=== PATIENT | female | born 1960 ===

== ENCOUNTER 2017-04-28 10:30 | Emergency (ER) | payer BC ==
[2017-04-28] MEDS ORDERED: Dexamethasone IV* 4 MG/ML 1 ML (4 MG) IM ONE (12:00)
[2017-04-28] MEDS ORDERED: Ketorolac INJ* 60 MG/2 ML VIAL IM ONE (12:01)
[2017-04-28] MEDS ORDERED: hydrOXYzine HCL TAB* 50 MG PO ONE (12:01)
[2017-04-28 13:13] VITALS: BP 127/62
--- NOTE | 2017-04-29 22:01 | ED ---
Allergic Reaction/Systemic - HPI Summary HPI Summary: Patient presents after wasp sting on the right knuckle. Her hand has been swollen since, but she did not take her epi pen and denies SOB. She is otherwise healthy. She notes to numbness, tingling and swelling with slight redness in the right hand extending to the right wrist without radiation of pain or numbness/tingling to the arm. Ice packs with relief. Swelling and pain is constant. She has not tried to take any medications. - History of Current Complaint Chief Complaint: EDAllergicReaction Time Seen by Provider: 04/28/17 11:39 Hx Obtained From: Patient Onset/Duration: Sudden Onset Timing: Constant Severity Initially: Moderate Severity Currently: Moderate Pain Intensity: 5 Pain Scale Used: 0-10 Numeric Location: Discrete @ - right hand Aggravating Factor(s): Heat Alleviating Factor(s): Cold Associated Signs And Symptoms: Positive: Negative - Related Hx Possible Reaction To: Insect - Allergies/Home Medications Allergies/Adverse Reactions: Allergies Allergy/AdvReac Type Severity Reaction Status Date / Time Sulfa Drugs Allergy Intermediate Hives Verified 01/23/16 11:04 Bee Venom Allergy Anaphylatic Verified 04/28/17 11:10 Shock PMH/Surg Hx/FS Hx/Imm Hx Previously Healthy: Yes - Cancer History Hx Chemotherapy: No Hx Radiation Therapy: No - Immunization History Hx Pertussis Vaccination: No Immunizations Up to Date: Unable to Obtain/Confirm Infectious Disease History: No Infectious Disease History: Denies: Traveled Outside the [place] in Last 30 Days - Social History Occupation: Employed Full-time Lives: With Family Alcohol Use: Rare Hx Substance Use: No Substance Use Type: Reports: None Hx Tobacco Use: No Smoking Status (MU): Unknown if Ever Smoked Do You Chew or Dip Tobacco: No Have You Chewed or Dipped Tobacco in the LAST YEAR: No Review of Systems Constitutional: Negative Eyes: Negative Cardiovascular: Negative Respiratory: Negative Positive: no symptoms reported, see HPI Musculoskeletal: Negative Positive: Rash Neurological: Negative Psychological: Normal All Other Systems Reviewed And Are Negative: Yes Physical Exam Triage Information Reviewed: Yes Vital Signs On Initial Exam: Initial Vitals Temp Pulse Resp BP Pulse Ox 96.0 F 68 20 138/78 98 04/28/17 10:35 04/28/17 10:35 04/28/17 10:35 04/28/17 10:35 04/28/17 10:35 Vital Signs Reviewed: Yes Appearance: Positive: Well-Appearing, Well-Nourished Skin: Positive: Warm, Skin Color Reflects Adequate Perfusion, Other - hand swelling with erytema, pruritis and pain Head/Face: Positive: Normal Head/Face Inspection Eyes: Positive: Normal, JULIO CÉSAR Respiratory/Lung Sounds: Positive: Clear to Auscultation, Breath Sounds Present Cardiovascular: Positive: Normal, RRR, Pulses are Symmetrical in both Upper and Lower Extremities Musculoskeletal: Positive: Normal, Strength/ROM Intact Neurological: Positive: Normal, Sensory/Motor Intact, Alert, Oriented to Person Place, Time, Speech Normal Psychiatric: Positive: Normal Diagnostics - Vital Signs Vital Signs Temp Pulse Resp BP Pulse Ox 04/28/17 13:12 73 18 127/62 04/28/17 11:25 18 04/28/17 11:07 96.0 F 68 18 138/78 97 04/28/17 10:35 96.0 F 68 20 138/78 98 - Laboratory Lab Statement: Any lab studies that have been ordered have been reviewed, and results considered in the medical decision making process. Allergic Reaction Course/Dx - Course Course Of Treatment: hand swelling with erytema, pruritis and pain after stung by a wasp. allergy to wasp. decadron, hydroxyzine given. benadryl encouraged. Lungs CTA and airway patent. Patient OK for discharge. - Diagnoses Differential Diagnosis/HQI/PQRI: Positive: Anaphylaxis, Angioedema Provider Diagnoses: Angioedema Discharge - Discharge Plan Condition: Stable Disposition: HOME Prescriptions: hydrOXYzine HCL TAB* [Atarax 25 MG TAB*] 25 mg PO TID PRN #12 tab PRN Reason: Itching Patient Education Materials: Angioedema (ED), Cold Compress or Soak (ED) Referrals: Qiana Calix MD [Primary Care Provider] - Additional Instructions: Take Claritin D-12 over the counter in the morning for allergies and swelling Hydroxyzine for any itching Benadryl 25mg at bedtime Cold compresses will help. If you develop any shortness of breath, return to ED immediately
== END 2017-04-28 13:10 | disposition home or self-care (01) ==
LOC: ED 10:30
DX: T63.441A Toxic effect of venom of bees, accidental (unintentional), initial encounter (principal); R21 Rash and other nonspecific skin eruption; T78.3XXA Angioneurotic edema, initial encounter; Y92.89 Other specified places as the place of occurrence of the external cause
CPT/HCPCS: 96372; 99282; A9270-GY; J1100; J1885